=== PATIENT | female | born 1965 | race Caucasian/White ===

== ENCOUNTER 2017-04-25 17:13 | Emergency (ER) | payer MEDICAID ==
[~2017-04-25] VITALS: Ht 152.4 cm; Wt 77.1 kg
[2017-04-25 17:19] VITALS: Ht 152.4 cm; Wt 77.1 kg
[2017-04-25 19:49] VITALS: BP 129/89
== END 2017-04-25 19:49 | disposition home or self-care (01) ==
LOC: ED 17:13
DX: J06.9 Acute upper respiratory infection, unspecified (principal); J02.9 Acute pharyngitis, unspecified; M54.6 Pain in thoracic spine; I10 Essential (primary) hypertension; Z88.5 Allergy status to narcotic agent
CPT/HCPCS: J7613; J7644

== ENCOUNTER 2017-04-26 19:14 | Emergency (ER) | payer MEDICAID ==
[~2017-04-26] VITALS: Ht 162.6 cm; Wt 77.1 kg
[2017-04-26 19:39] VITALS: Ht 162.6 cm; Wt 77.1 kg
[2017-04-26 21:25] VITALS: BP 120/76
== END 2017-04-26 21:25 | disposition home or self-care (01) ==
LOC: ED 19:14
DX: H11.32 Conjunctival hemorrhage, left eye (principal); J10.1 Influenza due to other identified influenza virus with other respiratory manifestations; I10 Essential (primary) hypertension; Z88.5 Allergy status to narcotic agent
CPT/HCPCS: 87804

== ENCOUNTER 2017-08-06 08:59 | Emergency (ER) | payer MEDICAID ==
[~2017-08-06] VITALS: Ht 160 cm; Wt 73.5 kg
[2017-08-06 09:08] VITALS: Ht 160 cm; Wt 73.5 kg
[2017-08-06 09:56] VITALS: BP 124/72
== END 2017-08-06 09:56 | disposition home or self-care (01) ==
LOC: ED 08:59
DX: R10.13 Epigastric pain (principal); R19.7 Diarrhea, unspecified; I10 Essential (primary) hypertension; Z88.5 Allergy status to narcotic agent

== ENCOUNTER 2017-08-14 16:33 | Emergency (ER) | payer MEDICAID ==
[~2017-08-14] VITALS: Ht 152.4 cm; Wt 73.7 kg
[2017-08-14 16:51] VITALS: Ht 152.4 cm; Wt 73.7 kg
[2017-08-14 17:32] LABS: BASOPHIL % 1.3 % (0-2); PLATELET COUNT 261 x10^3mcL (130-400); RED CELL DISTRIBUTION WIDTH 13.2 % (11.5-14.5)
[2017-08-14 17:39] LABS: CALCIUM 8.5 mg/dL (8.5-10.1); CARBON DIOXIDE 29.4 mmol/L (21-32); CHLORIDE SERUM 104 mmol/L (98-107); CREATININE SERUM 0.9 mg/dL (0.6-1.0); GFR1 > 60 mL/min; GLUCOSE SERUM 113 mg/dL (74-106); POTASSIUM SERUM 3.8 mmol/L (3.5-5.1); SODIUM SERUM 141 mmol/L (136-145)
[2017-08-14 17:56] LABS: ALBUMIN 3.6 g/dL (3.4-5.0); ALKALINE PHOSPHATASE 119 U/L (46-116); ALT/SGPT 32 U/L (14-59); AST/SGOT 19 U/L (15-37); BILIRUBIN TOTAL 0.2 mg/dL (0.20-1.00); LIPASE 172 IU/L (73-393); TOTAL PROTEIN, SERUM 7.3 g/dL (6.4-8.2)
[2017-08-14 18:50] VITALS: BP 115/72
== END 2017-08-14 18:50 | disposition home or self-care (01) ==
LOC: ED 16:33
PROVIDERS: Emergency Medicine
DX: A08.4 Viral intestinal infection, unspecified (principal); I10 Essential (primary) hypertension; Z88.5 Allergy status to narcotic agent
CPT/HCPCS: J1885; J2405

== ENCOUNTER 2018-02-27 10:43 | Emergency (ER) | payer MEDICAID ==
[~2018-02-27] VITALS: Ht 162.6 cm; Wt 71.2 kg
[2018-02-27 10:46] VITALS: Ht 162.6 cm; Wt 71.2 kg
[2018-02-27 11:28] LABS: BASOPHIL % 0.6 % (0-2); PLATELET COUNT 325 x10^3mcL (130-400); RED CELL DISTRIBUTION WIDTH 13.8 % (11.5-14.5)
[2018-02-27 11:39] LABS: CALCIUM 8.8 mg/dL (8.5-10.1); CARBON DIOXIDE 24.8 mmol/L (21-32); CHLORIDE SERUM 102 mmol/L (98-107); CREATININE SERUM 0.8 mg/dL (0.6-1.0); GFR1 > 60 mL/min; GLUCOSE SERUM 133 mg/dL (74-106); POTASSIUM SERUM 3.8 mmol/L (3.5-5.1); SODIUM SERUM 137 mmol/L (136-145)
[2018-02-27 11:49] LABS: ALKALINE PHOSPHATASE 67 U/L (46-116); ALT/SGPT 18 U/L (14-59); AST/SGOT 17 U/L (15-37); BILIRUBIN TOTAL 0.8 mg/dL (0.20-1.00); TOTAL PROTEIN, SERUM 6.6 g/dL (6.4-8.2)
[2018-02-27 11:50] LABS: ALBUMIN 2.6 g/dL (3.4-5.0)
[2018-02-27 12:05] LABS: CK-MB 1.1 ng/mL (0-3.6)
[2018-02-27 18:32] VITALS: BP 140/77
[2018-02-27] MEDS ORDERED: CEPHALEXIN500 M1 (23:30)
[2018-02-27] MEDS ORDERED: TRAMADOL HCL50 MG (23:30)
== END 2018-02-27 18:32 | disposition home or self-care (01) ==
LOC: ED 10:43
PROVIDERS: Emergency Medicine
DX: N61.0 Mastitis without abscess (principal); I10 Essential (primary) hypertension; Z88.5 Allergy status to narcotic agent; Z98.890 Other specified postprocedural states
CPT/HCPCS: J0696; J1885; Q9967

== ENCOUNTER 2018-02-27 22:12 | Emergency (ER) | payer MEDICAID ==
[~2018-02-27] VITALS: Ht 152.4 cm; Wt 71.2 kg
[2018-02-27 22:21] VITALS: Ht 152.4 cm; Wt 71.2 kg
[2018-02-27] MEDS ORDERED: CEPHALEXIN500 M1 (23:30)
[2018-02-27] MEDS ORDERED: TRAMADOL HCL50 MG (23:30)
[2018-02-27 23:34] LABS: BASOPHIL % 0.3 % (0-2); PLATELET COUNT 310 x10^3mcL (130-400); RED CELL DISTRIBUTION WIDTH 13.5 % (11.5-14.5)
[2018-02-27 23:46] LABS: CALCIUM 8.4 mg/dL (8.5-10.1); CHLORIDE SERUM 102 mmol/L (98-107); CREATININE SERUM 0.9 mg/dL (0.6-1.0); GFR1 > 60 mL/min; GLUCOSE SERUM 108 mg/dL (74-106); POTASSIUM SERUM 3.7 mmol/L (3.5-5.1); SODIUM SERUM 137 mmol/L (136-145)
[2018-02-27 23:51] LABS: ALKALINE PHOSPHATASE 65 U/L (46-116); ALT/SGPT 18 U/L (14-59); AST/SGOT 16 U/L (15-37); BILIRUBIN TOTAL 0.2 mg/dL (0.20-1.00); TOTAL PROTEIN, SERUM 6.4 g/dL (6.4-8.2)
[2018-02-27 23:55] LABS: ALBUMIN 2.5 g/dL (3.4-5.0)
[2018-02-28 06:11] VITALS: BP 138/84
== END 2018-02-28 06:11 | disposition short-term general hospital (02) ==
LOC: ED 22:12
PROVIDERS: Emergency Medicine
DX: N61.1 Abscess of the breast and nipple (principal); I10 Essential (primary) hypertension; Z98.82 Breast implant status; Z88.5 Allergy status to narcotic agent
CPT/HCPCS: J1885; J2543; J7030

== ENCOUNTER 2018-06-22 16:27 | Emergency (ER) | payer MEDICAID ==
[~2018-06-22] VITALS: Ht 152.4 cm; Wt 65.3 kg
[~2018-06-22 16:27] MED LIST: CEPHALEXIN500 M1; TRAMADOL HCL50 MG
[2018-06-22 16:44] VITALS: Ht 152.4 cm; Wt 65.3 kg
[2018-06-22 17:59] VITALS: BP 121/76
== END 2018-06-22 17:59 | disposition home or self-care (01) ==
LOC: ED 16:27
DX: M54.42 Lumbago with sciatica, left side (principal); I10 Essential (primary) hypertension; Z88.5 Allergy status to narcotic agent
CPT/HCPCS: J1885

== ENCOUNTER 2018-09-09 11:19 | Emergency (ER) | payer MEDICAID ==
[~2018-09-09] VITALS: Ht 152.4 cm; Wt 65.3 kg
[2018-09-09 11:29] VITALS: Ht 152.4 cm; Wt 65.3 kg
[2018-09-09 12:36] LABS: CALCIUM 8.8 mg/dL (8.5-10.1); CARBON DIOXIDE 27.8 mmol/L (21-32); CREATININE SERUM 1.1 mg/dL (0.6-1.0); POTASSIUM SERUM 3.9 mmol/L (3.5-5.1)
[2018-09-09 12:38] LABS: ALBUMIN 3.4 g/dL (3.4-5.0); BILIRUBIN TOTAL 0.26 mg/dL (0.20-1.00); TOTAL PROTEIN, SERUM 6.9 g/dL (6.4-8.2)
[2018-09-09 12:47] LABS: PLATELET COUNT 246 x10^3mcL (130-400); RED CELL DISTRIBUTION WIDTH 14.2 % (11.5-14.5)
[2018-09-09 13:19] VITALS: BP 108/79
[2018-09-09 14:35] LABS: BAND NEUTROPHIL 0 % (0-10); BASOPHIL 1 % (0-2); MONOCYTE 8 % (0-7); PLATELET MORPHOLOGY PLATELETS NORMAL; SEGMENTED NEUTROPHILS 62 % (37-75); rbc morphology (normal/abnorm) NORMAL (NORMAL)
== END 2018-09-09 13:19 | disposition home or self-care (01) ==
LOC: ED 11:19
PROVIDERS: Emergency Medicine
DX: N20.0 Calculus of kidney (principal); J45.909 Unspecified asthma, uncomplicated; I10 Essential (primary) hypertension; Z41.1 Encounter for cosmetic surgery; Z88.5 Allergy status to narcotic agent
CPT/HCPCS: 36415

== ENCOUNTER 2019-02-20 13:45 | Emergency (ER) | payer MEDICAID ==
[~2019-02-20] VITALS: Ht 157.5 cm; Wt 69.9 kg
[2019-02-20 13:48] VITALS: BP 143/78; Ht 157.5 cm; Wt 69.9 kg
== END 2019-02-20 14:40 | disposition home or self-care (01) ==
LOC: ED 13:45
DX: M77.9 Enthesopathy, unspecified (principal); J45.909 Unspecified asthma, uncomplicated; I10 Essential (primary) hypertension; Z41.1 Encounter for cosmetic surgery; Z88.5 Allergy status to narcotic agent
CPT/HCPCS: J7512

== ENCOUNTER 2019-04-30 12:45 | Emergency (ER) | payer MEDICAID ==
[~2019-04-30] VITALS: Ht 157.5 cm; Wt 67.1 kg
[2019-04-30 13:09] VITALS: BP 111/84
== END 2019-04-30 14:05 | disposition home or self-care (01) ==
LOC: ED 12:45
DX: J06.9 Acute upper respiratory infection, unspecified (principal); J45.909 Unspecified asthma, uncomplicated; I10 Essential (primary) hypertension; Z41.1 Encounter for cosmetic surgery; Z88.5 Allergy status to narcotic agent

== ENCOUNTER 2019-10-23 19:18 | Emergency (ER) | payer MEDICAID, SELFPAY ==
[~2019-10-23] VITALS: Ht 154.9 cm; Wt 66.2 kg
[2019-10-23 19:21] VITALS: Ht 154.9 cm; Wt 66.2 kg
[2019-10-23 22:38] VITALS: BP 114/68
== END 2019-10-23 22:38 | disposition home or self-care (01) ==
LOC: ED 19:18
DX: U07.1 COVID-19 (principal)
CPT/HCPCS: Q0092; U0003-CS